=== PATIENT | male | born 1970 | race Caucasian/White ===

== ENCOUNTER 2019-09-22 07:38 | Emergency (ER) | payer BC ==
[2019-09-22] MEDS ORDERED: predniSONE 20 MG Tab PO STA (08:04)
--- NOTE | 2019-09-22 09:24 | EDM.PDOC ---
ED HPI GENERAL MEDICAL PROBLEM - General Chief Complaint: ENT Problem Stated Complaint: CONGESTION Time Seen by Provider: 09/22/19 08:00 Source of Information: Reports: Patient History Limitations: Reports: No Limitations - History of Present Illness INITIAL COMMENTS - FREE TEXT/NARRATIVE: Patient comes emergency department today with complaints of sinus congestion pressure and pain. This patient for the last 3 days has had increasing sinus pressure and pain in his nose is getting the point where it is very tender. He has had no drainage. No discharge. No fever no chills. No falls or trauma to his nose. He has tried some Claritin without improvement. He does use some Flonase a couple of times a week. He has no difficulty hearing or swallowing. No sore throat. No cough or congestion. No headache. No facial pain. Nare Pain Score (Numeric/FACES): 8 - Related Data Allergies Allergy/AdvReac Type Severity Reaction Status Date / Time No Known Allergies Allergy Verified 09/22/19 07:50 Home Meds: Home Meds predniSONE 40 mg PO DAILY #8 tab 09/22/19 [Rx] Past Medical History - Past Health History Medical/Surgical History: Denies Medical/Surgical History Social & Family History - Tobacco Use Smoking Status *Q: Never Smoker - Alcohol Use Days Per Week of Alcohol Use: 1 Number of Drinks Per Day: 4 Total Drinks Per Week: 4 - Recreational Drug Use Recreational Drug Use: No ED ROS ENT - Review of Systems Review Of Systems: Comprehensive ROS is negative, except as noted in HPI. ED EXAM, ENT - Physical Exam Exam: See Below Exam Limited By: No Limitations General Appearance: Alert, WD/WN Eye Exam: Bilateral Eye: Conjunctival Injection, Other (His eyes are watering bilaterally as well.) Ears: Normal External Exam, Normal Canal, Hearing Grossly Normal, Normal TMs Nose: No Blood, Clear Rhinorrhea, Nasal Tenderness, Other (Turbinates very boggy and pale and there is very small airway passages throughout the sinus cavity. Congestion and thick mucus as well. ). No: Nasal Discharge, Dried Blood Mouth/Throat: Normal Inspection, Normal Gums, Normal Lips, Normal Teeth Head: Atraumatic, Normocephalic Neck: Normal Inspection, Supple, Non-Tender Respiratory/Chest: No Respiratory Distress, Lungs Clear, Normal Breath Sounds, No Accessory Muscle Use, Chest Non-Tender Cardiovascular: Normal Peripheral Pulses, Regular Rate, Rhythm Extremities: Normal Inspection Neurological: Alert, Oriented, Normal Cognition, No Motor/Sensory Deficits Skin: Warm, Dry, Intact, Normal Color Course - Vital Signs Last Recorded V/S: Last Vital Signs Temp 36.5 C 09/22/19 07:40 Pulse 71 09/22/19 07:40 Resp 16 09/22/19 07:40 BP 146/85 H 09/22/19 07:40 Pulse Ox 95 09/22/19 07:40 - Orders/Labs/Meds Meds: Medications Discontinued Medications Generic Name Dose Route Start Last Admin Trade Name Hilary PRN Reason Stop Dose Admin Prednisone 40 mg 09/22/19 08:04 09/22/19 08:16 Prednisone PO 09/22/19 08:05 40 mg NOW STA Administration - Re-Assessments/Exams Free Text/Narrative Re-Assessment/Exam: 09/22/19 09:23 With the patient about the importance of using a nasal rinse to remove particulates that can cause this type of symptomology. Also the importance of regular dosing of Flonase to make sure that works appropriately. We will start him on some prednisone nasal rinse and regular dosing of fluticasone. He can also use [id number] Zyrtec Xyzal or Kathryn. He is comfortable with this plan and his questions are answered. Departure - Departure Time of Disposition: 08:05 Disposition: Home, Self-Care 01 Clinical Impression: Acute sinusitis Qualifiers: Sinusitis location: unspecified location Recurrence: not specified as recurrent Qualified Code(s): J01.90 - Acute sinusitis, unspecified - Discharge Information Prescriptions: predniSONE 40 mg PO DAILY #8 tab Instructions: Sinusitis, Adult, [id number], How to Perform a Sinus Rinse, [id number] Referrals: PCP,None [Primary Care Provider] - Forms: ED Department Discharge Additional Instructions: Tylenol and or Ibuprofen as needed for pain. Netti Pot or other OTC nasal rinse product twice daily. After the rinse, Flonase 1 spray each nostril twice daily for the next 7 days and the 1 spray each nostril daily. This takes weeks to really start to make a difference. Prednisone 40mg daily for the next 5 days. First dose given in the ED RX to [facility]. Return to the ED if new or worsening symptoms. Follow up with PCP in the next 4-6 days if not improving sooner if worse. Sepsis Event Note - Evaluation Sepsis Screening Result: No Definite Risk - Focused Exam Vital Signs: Vital Signs Temp Pulse Resp BP Pulse Ox 09/22/19 07:40 36.5 C 71 16 146/85 H 95 Date Exam was Performed: 09/22/19 Time Exam was Performed: 09:19
== END 2019-09-22 08:18 | disposition home or self-care (01) ==
LOC: VM.ED 07:38
DX: J01.90 Acute sinusitis, unspecified (principal)
CPT/HCPCS: 99283; J7512